=== PATIENT | female | born 1940 | race Caucasian/White ===

== ENCOUNTER → 2016-07-25 | Outpatient (CLI) | payer OTHER, BC ==
[~2016-07-25] MED LIST: AMBIEN 10 MG TA10 MG PO; AMLODIPINE BESYL5 M1 PO; ASPIRIN81 M2 PO; ATORVASTATIN CA40 MG PO; BENADRYL25 MG PO; BIOTIN1 MG PO; CIPROFLOXACIN500 M1 PO; COREG6.25 MG PO; CRESTOR40 MG PO; DYAZIDE 37.5-21 EACH PO; FIBERCON625 M1 PO; FLEXERIL PO; HYDROCODON-ACE1 EAC5 PO; HYDROCODON-ACE1 EAC7 PO; LISINOPRIL10 MG PO; LISINOPRIL20 MG PO; MOBIC7.5 MG PO; MULTI VITAMIN1 EACH PO; NEXIUM 40 MG CA40 M1 PO; NORVASC5 MG PO; PROBIOTIC1 EAC1 PO; TOPROL XL25 MG PO; TRAMADOL 50 MG50 MG PO; TRIAMTERENE/HCT1 CA1 PO; VITAMIN D2000 UNIT PO; WELLBUTRIN SR150 MG PO; XANAX 0.25 MG0.25 MG PO
== END ==
LOC: RAD 02:37
DX: Z12.31 Encounter for screening mammogram for malignant neoplasm of breast (principal)

== ENCOUNTER 2017-09-09 08:01 | Inpatient (IN) | payer OTHER, BC ==
[~2017-09-09] VITALS: Ht 175.3 cm; Wt 69.4 kg
[2017-09-09] VITALS (7 sets, daily range): BP systolic 126–165; BP diastolic 52–76
--- NOTE | ~2017-09-09 | H ---
[facility] [place] [address] HISTORY AND PHYSICAL Name: MAUREEN MANRIQUE Room #: 170-9 ADM IN M.R.#: [id number] Admission: 09/09/17 Attend Phys: Jacob Calderon MD Discharge: Date of : 42 Report #: [id number] THIS REPORT FOR: //name// CC: Julius Calderon DATE OF SERVICE: 09/09/2017 CHIEF COMPLAINT: Shortness of breath. HISTORY OF PRESENT ILLNESS: The patient is a 76-year-old female transferred from [facility] for evaluation of shortness of breath. She underwent a right total knee replacement on 08/28/2017 and then transferred to the intermediate unit for continued rehabilitation several days later. A few days ago, she developed progressive shortness of breath and there was a report of fever up to 101. She has had a dry cough during that time, but symptoms of dyspnea on exertion and hypoxia have worsened over the last couple of days. She has required placement of oxygen up to 3 or 4 liters nasal cannula. She has had low-grade fevers and has been sent to the Emergency Room for evaluation. PAST MEDICAL HISTORY: Hypertension, osteoarthritis. PAST SURGICAL HISTORY: She had colon repair in the FAMILY HISTORY: Noncontributory. SOCIAL HISTORY: No chronic alcohol or tobacco use. ALLERGIES: None. MEDICATIONS: Ambien, aspirin, Lipitor, Maxzide, meloxicam, Coreg, Wellbutrin, Norvasc, probiotic, multivitamin, vitamin D, biotin. REVIEW OF SYSTEMS: She denies headache, chest pain, abdominal pain, nausea, vomiting, diarrhea, constipation, dysuria, syncope or fall. PHYSICAL EXAMINATION: VITAL SIGNS: Temperature 36.8, pulse 80, respirations 15, blood pressure 136/54, room air sat was 88%, 94% on 3 liters nasal cannula. GENERAL: She is awake and alert, in no distress. HEAD AND NECK: Unremarkable. LUNGS: Clear. HEART: Regular. ABDOMEN: Soft, normoactive bowel sounds. EXTREMITIES: No edema. The right knee incision is closed and intact. There is some scant dry crusted material in the superior aspect of the incision with just [facility] [address] [place] [address] HISTORY AND PHYSICAL Name: MAUREEN MANRIQUE Room #: 170-9 ADM IN [facility].#: [id number] Admission: 09/09/17 Attend Phys: Jacob Calderon MD Discharge: Date of : 42 Report #: [id number] some pink areas on the edges. There is no significant drainage. There is no surrounding erythema. There is 1+ right lower leg edema. NEUROLOGIC: Cranial nerves intact. Speech is fluent. Motor strength 5/5 throughout. LABORATORY DATA: White count is 13, hemoglobin 9, mild left shift with segs of 84%. Basic chemistry is unremarkable. Troponin negative. BNP is 3700. Albumin 2.4. Chest x-ray shows bilateral patchy infiltrate, suggests edema versus infiltrate; small left pleural effusion. ASSESSMENT: 1. Healthcare-associated pneumonia. 2. Pulmonary edema. 3. Hypertension. 4. Hypoxia. 5. Acute blood loss anemia, postop. 6. Moderate protein-calorie malnutrition, albumin 2.4. PLAN: She will be treated with empiric antibiotics for healthcare-related pneumonia at this point as she has been hospitalized recently. I have asked for a CTA of the chest to rule out pulmonary embolus given recent knee replacement, although I have been told she had been on Lovenox for DVT prophylaxis. Lasix has been ordered as well in usual home medications. Therapies to continue. I understand that she reported a culture obtained from the right knee incision, I will track that down from the [facility] facility. <ELECTRONICALLY SIGNED> By: Jacob Calderon MD 09/09/17 1245 1030 1053 Jacob Calderon MD /nt
--- NOTE | ~2017-09-09 | HC ---
[facility] [place] [address] CONSULTATION Name: MAUREEN MANRIQUE Room #: 451-P [facility] IN M.R.#: [id number] Admission: 09/09/17 Attend Phys: Jacob Calderon MD Discharge: 09/16/17 Date of : 42 Report #: [id number] THIS REPORT FOR: //name// CC: Julius Calderon MD DATE OF SERVICE: 09/11/2017 REFERRING PROVIDER: Dr. Jacob Calderon. REASON FOR CONSULTATION: Hypoxemia. CHIEF COMPLAINT: Shortness of breath. HISTORY OF PRESENT ILLNESS: Our group was asked to see the patient this morning in consultation while hospitalized at [facility]. The patient is a recent right total knee arthroplasty 2 weeks ago, had been in advanced rehab; however, developed increasing hypoxemia and what appeared to be some mild confusion, was brought to the Emergency Department here 2 days ago where a CT scan of the chest PE protocol was performed to evaluate her hypoxemia. No significant pulmonary emboli were found. Small bilateral pleural effusions were noted. The patient was febrile at that time with a temperature of 101. Diffuse alveolar infiltrates were also noted. She was started on Levaquin and vancomycin. She continues to have significant hypoxemia and desaturation with any activity. Denies any chest pain. Cough is nonproductive and dry. She does complain of some dry throat and difficulty swallowing. No prior pulmonary history. No history of tobacco use. ALLERGIES: None known. PAST MEDICAL HISTORY: Hypertension. OUTPATIENT MEDICATIONS: Include Ambien, aspirin, Lipitor, Maxzide, meloxicam, Coreg, Wellbutrin, Norvasc, probiotics, multivitamin, vitamin D. PAST SURGICAL HISTORY: Includes colon surgery in 1989 as well as bilateral knee arthroplasties, most recently 2 weeks ago. SOCIAL HISTORY: Never smoker, no alcohol consumption. Lives independently with multiple family members in town. FAMILY HISTORY: Negative for any significant pulmonary disease. REVIEW OF SYSTEMS: CONSTITUTIONAL: Fever as noted. No chills or sweats. [facility] [address] [place] [address] CONSULTATION Name: MAUREEN MANRIQUE Room #: 451-[facility] IN [facility].#: [id number] Admission: 09/09/17 Attend Phys: Jacob Calderon MD Discharge: 09/16/17 Date of : 42 Report #: [id number] ENT: Denies any upper respiratory congestion, some mild dysphagia and dry oropharynx. CARDIOVASCULAR: Has seen Dr. Jamie Orellana, Cardiology, but mainly for hypertension. No chest pains or palpitations. No cardiac disease. GASTROINTESTINAL: No nausea, vomiting or abdominal pain. GENITOURINARY: No dysuria, frequency or hematuria. INTEGUMENT: Denies any new rash. MUSCULOSKELETAL: Recent right knee arthroplasty, undergoing rehabilitation. No other acute complaints. PHYSICAL EXAMINATION: VITAL SIGNS: Temperature max 37.9, temperature current 36.7, pulse 70s, respiratory rate 20, blood pressure 106/32, oxygen saturation 93% on 5 liters nasal cannula. GENERAL: This is a well-developed elderly woman, does not appear in any distress. HEENT: Reveals dry oropharynx, Mallampati 1. No thrush. No dental caries noted. NECK: Supple, no lymphadenopathy. LUNGS: Diminished bases with inspiratory crackles, no wheezes. CARDIOVASCULAR: Heart was regular, 2/6 murmur noted. ABDOMEN: Soft, nontender, no masses. EXTREMITIES: 1+ right lower extremity edema, well healing scar over the right knee. LABORATORY DATA: Arterial blood gas done this morning on 3 liters revealed pH 7.41, pCO2 of 44, pO2 of 53, bicarbonate 27. CBC revealed white blood cell count 13,000, hemoglobin 9, hematocrit 26, platelet count . Sodium 129, potassium 3.8, chloride 93, bicarbonate 29, BUN 19, creatinine 0.9. MRSA screen is negative. CT scan as described in HPI. IMPRESSION: 1. Diffuse pulmonary infiltrates, suspicion for healthcare-associated pneumonia. Findings could also be consistent with acute respiratory distress syndrome. The patient does not have significant enough hypoxemia to label that at this time. 2. Pleural effusions with an elevated B-type natriuretic peptide suggestive of pulmonary edema. This may also be contributing to the above findings. 3. Acute hypoxemic respiratory failure. 4. Status post right total knee arthroplasty. SUGGESTIONS: 1. Broaden antimicrobial for coverage of healthcare associated and possibly aspiration organisms. 2. Discontinue vancomycin. His MRSA screen is negative. 3. Continue with bronchodilators. We will add EzPAP. [address] [address] CONSULTATION Name: MAUREEN MANRIQUE Room #: 451-P [facility] IN M.R.#: [id number] Admission: 09/09/17 Attend Phys: Jacob Calderon MD Discharge: 09/16/17 Date of : 42 Report #: [id number] 4. Encourage incentive spirometry. 5. Continuous oximetry monitoring. 6. Diuresis. 7. Check echocardiogram. 8. Follow up electrolytes given diuretics. 9. We will continue to follow. Discussed with nursing and patient at the bedside. <ELECTRONICALLY SIGNED> By: Octaviano Levine MD 09/18/17 1057 1149 1936 Octaviano Levine MD /nt
--- NOTE | ~2017-09-09 | 2DMMODE ---
[facility] [address] [place] [address] 2 D/M-MODE ECHOCARDIOGRAM Name: MAUREEN MANRIQUE Room #: 451-P ADM IN M.R.#: [id number] Admission: 09/09/17 Attend Phys: Dusty Wagner Discharge: Date of : 42 Date of Service: 09/11/17 1148 Report #: [id number] THIS REPORT FOR: //name// APPROVED REPORT Study performed: 09/11/2017 10:48:09 EXAM: Limited 2D, Doppler, and color-flow Echocardiogram Patient Location: Bedside Room #: [facility] Status: routine BSA: 1.84 HR: 70 bpm BP: 119/68 mmHg Other Information Study Quality: Good Technically limited study due to limited to assess PA pressure. Indications SOA, pulmonary edema/effusion 2D Dimensions LVEF(%): 75.61 (>50%) IVSd: 10.95 (7-11mm) LVDd: 36.23 mm PWd: 10.23 (7-11mm) LVDs: 20.46 (25-40mm) IVC: 15.00 mm Ramírez's LVEF: 75.61 % Aortic Valve AI Vmax: 3.97 m/s AI [place]: 2.99 m/s2 AI PHT: 385.05 ms Tricuspid Valve TR Peak Charles.: 3.20 m/s RAP Estimate: 5.00 mmHg TR Peak Gr.: 41.04 mmHg PA Pressure: 46.00 mmHg Left Ventricle The left ventricle is normal size. There is normal left ventricular wall thickness. The left ventricular systolic function is normal. The left ventricular ejection fraction is within the normal range. LVEF [facility] [address] [address] 2 D/M-MODE ECHOCARDIOGRAM Name: MAUREEN MANRIQUE Room #: 451-P ADM IN M.R.#: [id number] Admission: 09/09/17 Attend Phys: Dusty Wagner Discharge: Date of : 42 Date of Service: 09/11/17 1148 Report #: [id number] is 60-65%. Right Ventricle The right ventricle is normal size. Right ventricular systolic function appears grossly normal. Aortic Valve The aortic valve is normal in structure. Moderate aortic regurgitation. Mitral Valve Mild mitral annular calcification. Mild mitral regurgitation. Tricuspid Valve The tricuspid valve is normal in structure. Mild tricuspid regurgitation. PAP is estimated at 46 mmHg. Great Vessels IVC is normal in size and collapses >50% with inspiration. Pericardium Trace pericardial effusion. No echo indications of pericardial tamponade. Small to moderate pleural effusion noted. <Conclusion> The left ventricle is normal size. LVEF is 60-65%. The right ventricle is normal size. The aortic valve is normal in structure. Moderate aortic regurgitation. Mild mitral annular calcification. Mild mitral regurgitation. The tricuspid valve is normal in structure. Mild tricuspid regurgitation. PAP is estimated at 46 mmHg. Trace pericardial effusion. No echo indications of pericardial tamponade. Small to moderate pleural effusion noted. <ELECTRONICALLY SIGNED> By: Hari Erwin MD 09/11/17 1148 1148 1148 Hari Erwin MD /INF
--- NOTE | ~2017-09-09 | EKG ---
[place] [address] [facility] [place] [address] ELECTROCARDIOGRAM REPORT Name: MAUREEN MANRIQUE Room #: 170-9 ADM IN M.R.#: [id number] Admission: 09/09/17 Attend Phys: Jacob Calderon MD Discharge: Date of : 42 Report #: [id number] THIS REPORT FOR: //name// [facility] ED Test Date: 2017-09-09 Test Time: 09:15:50 Pat Name: MAUREEN MANRIQUE Department: Room: Gender: F Tank Officer: richard : 1940 Requested By: Guillermo Peralta Order Number: [id number] MD: Jaydon Whitten Measurements Intervals [place] Rate: 75 P: 38 NE: 190 QRS: 25 QRSD: 85 T: 25 QT: 413 QTc: 462 Interpretive Statements Sinus rhythm Borderline repolarization abnormality Compared to ECG 05/03/2013 07:41:58 ST and T wave abnormality is less pronounced Prolonged QT interval no longer present Electronically Signed On 09-09-2017 15:55:22 CDT by Jaydon Whitten [email or web address] <ELECTRONICALLY SIGNED> By: Jaydon Whitten MD, [facility] 09/09/17 1555 4 4 Jaydon Whitten MD, [facility] /EPI
--- NOTE | ~2017-09-09 | D ---
[facility] [place] [address] DISCHARGE SUMMARY Name: MAUREEN MANRIQUE Room #: 451-P [facility] IN M.R.#: [id number] Admission: 09/09/17 Attend Phys: Jacob Calderon MD Discharge: 09/16/17 Date of : 41 Report #: [id number] THIS REPORT FOR: //name// CC: Julius Calderon FINAL DIAGNOSES: 1. Healthcare-associated pneumonia. 2. Pulmonary edema. 3. Hypertension. 4. History of right total knee replacement. 5. Anemia due to recent acute blood loss. HOSPITAL COURSE: The patient was admitted with hypoxia from the skilled facility. Working diagnosis was healthcare-associated pneumonia. There was some pulmonary edema and she had an elevated BNP, although her ejection fraction was normal. She received IV diuretics and this seemed to help as well. She responded slowly to antibiotics and pulmonary treatments. I had Dr. Levine assess her as well and medicines were continued as had been laid out. She gradually improved over the last 3 or 4 hospital days to oxygen requirement being weaned down to 1-2 liters nasal cannula from as high as 4-5 liters. Chest x-ray was showing improvement in the pulmonary edema and bilateral infiltrates. PHYSICAL EXAMINATION: GENERAL: On the day of discharge, she was awake and alert. VITAL SIGNS: Stable vital signs. Blood pressures were stable off her antihypertensives. LUNGS: Clear. HEART: Regular. ABDOMEN: Soft, normoactive bowel sounds. EXTREMITIES: No edema. The right knee incision was closed and dry with just pink areas along the incision and incision culture was negative. DISPOSITION: She will be transferred to [facility] for continued care home rehabilitation. She will be under the care of Dr. Herman. Regular diet. Activity as tolerated. PT, OT. I signed her transfer medications to include Lovenox for DVT prophylaxis, diuretic for 3 more days, antibiotics for 7 days, and her pain medication. She is to hold antihypertensives for now. Followup lab data has been ordered for 2 days. <ELECTRONICALLY SIGNED> By: Jacob Calderon MD 09/17/17 1219 1000 1154 Jacob Calderon MD /nt
[~2017-09-09 08:01] MED LIST changes: -ATORVASTATIN CA40 MG PO
[2017-09-09 08:31] LABS: ABSOLUTE NEUTROPHILS 11.1 thou/uL (1.4-8.2); BASOPHILS 0.5 % (0.0-2.0); EOSINOPHILS 1.3 % (0.0-3.0); HEMATOCRIT 27.6 % (37.0-47.0); HEMOGLOBIN 9.5 gm/dL (12.0-15.0); LYMPHOCYTES 6.2 % (24.0-44.0); MCH 32.7 pg (26.0-34.0); MCHC 34.4 g/dL (28.0-37.0); MONOCYTES 8.3 % (1.0-8.0); PLATELET COUNT 451 thou/uL (150-400); POLYS 83.7 % (36.0-66.0); RBC 2.91 mil/uL (4.20-5.00); RDW 13.5 % (10.5-14.5); WBC 13.3 thou/uL (4.0-11.0)
[2017-09-09 08:48] LABS: ANION GAP 5 mmol/L (7-16); BUN 9 mg/dL (7-18); CHLORIDE 95 mmol/L (98-107); CO2 30 mmol/L (21-32); CREATININE 0.8 mg/dL (0.6-1.0); GLUCOSE 127 mg/dL (74-106); POTASSIUM 3.5 mmol/L (3.5-5.1); SODIUM 130 mmol/L (136-145)
[2017-09-09 08:52] LABS: ALBUMIN 2.4 g/dL (3.4-5.0); SGOT 27 U/L (15-37); SGPT 19 U/L (30-65); TOTAL BILIRUBIN 0.6 mg/dL (<0.1-1.0); TOTAL PROTEIN 6.2 g/dL (6.4-8.2); TROPONIN-I < 0.04 ng/mL (<0.06)
[2017-09-09] MEDS ORDERED: BYSTOLIC20 MG PO (14:35)
[2017-09-09] MEDS ORDERED: CYMBALTA60 MG PO (14:35)
[2017-09-09] MEDS ORDERED: OMEPRAZOLE 20 M20 M1 PO (14:36)
[2017-09-09] MEDS ORDERED: MOBIC15 MG PO (14:36)
[2017-09-09] MEDS ORDERED: EDARBYCLOR 40-1 EAC1 PO (14:36)
[2017-09-09] MEDS ORDERED: CRESTOR40 MG PO (14:42)
[2017-09-09] MEDS ORDERED: VITAMIN D2000 UNIT PO (14:42)
[2017-09-09] MEDS ORDERED: CYCLOBENZAPRINE5 MG PO (14:43)
[2017-09-09] MEDS ORDERED: TRAZODONE HCL50 MG PO (14:43)
[2017-09-09] MEDS ORDERED: ACIDOPHILUS1 EACH PO (14:44)
[2017-09-09] MEDS ORDERED: ATORVASTATIN CA40 MG PO (15:13)
[2017-09-10 03:58] VITALS: BP 116/52
[2017-09-10 05:18] LABS: HEMATOCRIT 25.8 % (37.0-47.0); HEMOGLOBIN 8.7 gm/dL (12.0-15.0); MCH 32.2 pg (26.0-34.0); MCHC 33.9 g/dL (28.0-37.0); MCV 95.1 fL (80.0-100.0); RBC 2.71 mil/uL (4.20-5.00); RDW 13.5 % (10.5-14.5); WBC 16.1 thou/uL (4.0-11.0)
[2017-09-10 05:33] LABS: CALCIUM 8.6 mg/dL (8.5-10.1); CREATININE 0.9 mg/dL (0.6-1.0); POTASSIUM 3.1 mmol/L (3.5-5.1)
[2017-09-10 07:27] VITALS: BP 106/45
[2017-09-10 16:05] VITALS: BP 105/37
[2017-09-10 19:00] VITALS: BP 129/54
[2017-09-11 04:55] VITALS: BP 106/32
[2017-09-11 05:29] LABS: HEMATOCRIT 25.9 % (37.0-47.0); HEMOGLOBIN 8.8 gm/dL (12.0-15.0); MCH 32.1 pg (26.0-34.0); MCHC 33.9 g/dL (28.0-37.0); MCV 94.7 fL (80.0-100.0); RBC 2.74 mil/uL (4.20-5.00); RDW 13.3 % (10.5-14.5); WBC 12.9 thou/uL (4.0-11.0)
[2017-09-11 05:40] LABS: CALCIUM 8.6 mg/dL (8.5-10.1); CREATININE 0.9 mg/dL (0.6-1.0); POTASSIUM 3.8 mmol/L (3.5-5.1)
[2017-09-11 08:00] VITALS: BP 119/68
[2017-09-11 09:27] LABS: BE(vivo) 2.1 mmol/L (-2 to +3); HCO3 27.2 mmol/L (22.0-26.0); PCO2 44.4 mmHg (35.0-45.0); PO2 52.7 mmHg (80.0-100.0); pH 7.405 (7.360-7.450); sO2 87.3 % (92.0-98.0)
[2017-09-11 15:52] VITALS: BP 90/40
[2017-09-11 18:53] VITALS: BP 109/41
[2017-09-12 03:07] VITALS: BP 109/42
[2017-09-12 05:41] LABS: ALBUMIN 2.4 g/dL (3.4-5.0); CALCIUM 8.6 mg/dL (8.5-10.1); CREATININE 0.9 mg/dL (0.6-1.0); PHOSPHORUS 3.8 mg/dL (2.5-4.9); POTASSIUM 4.1 mmol/L (3.5-5.1)
[2017-09-12 07:25] VITALS: BP 106/50
[2017-09-12 15:45] VITALS: BP 119/42
[2017-09-12 19:13] VITALS: BP 119/47
[2017-09-13 04:16] VITALS: BP 119/45
[2017-09-13 04:42] LABS: HEMATOCRIT 23.2 % (37.0-47.0); HEMOGLOBIN 8.3 gm/dL (12.0-15.0); MCH 33.3 pg (26.0-34.0); MCHC 35.8 g/dL (28.0-37.0); RBC 2.49 mil/uL (4.20-5.00); RDW 13.9 % (10.5-14.5); WBC 9.5 thou/uL (4.0-11.0)
[2017-09-13 04:47] LABS: CALCIUM 8.9 mg/dL (8.5-10.1); POTASSIUM 3.2 mmol/L (3.5-5.1)
[2017-09-13 07:12] VITALS: BP 133/48
[2017-09-13 16:13] VITALS: BP 128/62
[2017-09-13 19:28] VITALS: BP 129/46
[2017-09-14 03:31] VITALS: BP 138/56
[2017-09-14 07:35] VITALS: BP 101/49
[2017-09-14 13:34] LABS: CALCIUM 8.5 mg/dL (8.5-10.1); CREATININE 0.8 mg/dL (0.6-1.0); POTASSIUM 3.5 mmol/L (3.5-5.1)
[2017-09-14 15:15] VITALS: BP 121/47
[2017-09-14 20:00] VITALS: BP 107/52
[2017-09-15 04:30] VITALS: BP 110/60
[2017-09-15 05:42] LABS: CALCIUM 8.7 mg/dL (8.5-10.1); CREATININE 0.7 mg/dL (0.6-1.0); POTASSIUM 3.6 mmol/L (3.5-5.1)
[2017-09-15 08:00] VITALS: BP 144/66
[2017-09-15 15:41] VITALS: BP 110/49
[2017-09-15 20:00] VITALS: BP 121/65
[2017-09-16 01:08] LABS: ADENOVIRUS Negative (Negative); INFLUENZA A Negative (Negative); INFLUENZA B Negative (Negative); METAPNEUMOVIRUS Negative (Negative); PARAINFLUENZA 1 Negative (Negative); PARAINFLUENZA 2 Negative (Negative); PARAINFLUENZA 3 Negative (Negative); RHINOVIRUS Negative (Negative); RSV A Negative (Negative); RSV B Negative (Negative)
[2017-09-16 04:09] VITALS: BP 132/72
[2017-09-16 05:26] LABS: HEMATOCRIT 26.2 % (37.0-47.0); MCH 32.1 pg (26.0-34.0); MCHC 34.4 g/dL (28.0-37.0); MCV 93.2 fL (80.0-100.0); RBC 2.81 mil/uL (4.20-5.00); RDW 13.9 % (10.5-14.5); WBC 9.3 thou/uL (4.0-11.0)
[2017-09-16 05:42] LABS: CALCIUM 8.8 mg/dL (8.5-10.1); CREATININE 0.7 mg/dL (0.6-1.0); POTASSIUM 3.8 mmol/L (3.5-5.1)
[2017-09-16 08:23] VITALS: BP 136/61
[2017-09-16] MEDS ORDERED: ALBUTEROL2.5 MG/0.5 INH (09:32)
[2017-09-16] MEDS ORDERED: AUGMENTIN 875-1 EACH PO (09:32)
[2017-09-16] MEDS ORDERED: ENOXAPARIN40 MG/0.1 SUBQ (09:32)
[2017-09-16] MEDS ORDERED: NORCO 10-325 T1 EACH PO (09:33)
[2017-09-16] MEDS ORDERED: DEMADEX20 MG PO (09:33)
== END 2017-09-16 14:35 | DRG 193 ==
LOC: ER 08:01 → EROBS 09:04 → 4W 09:04
PROVIDERS: Emergency Medicine; Internal Medicine; Internal Medicine Geriatric Medicine; Internal Medicine Pulmonary Disease
DX: J18.9 Pneumonia, unspecified organism (principal); J96.01 Acute respiratory failure with hypoxia; R65.11 Systemic inflammatory response syndrome (SIRS) of non-infectious origin with acute organ dysfunction; D62 Acute posthemorrhagic anemia; E44.0 Moderate protein-calorie malnutrition; I35.1 Nonrheumatic aortic (valve) insufficiency; M19.90 Unspecified osteoarthritis, unspecified site; Y95 Nosocomial condition; Z96.653 Presence of artificial knee joint, bilateral; Z68.22 Body mass index [BMI] 22.0-22.9, adult; Z79.82 Long term (current) use of aspirin; Z79.899 Other long term (current) drug therapy
CPT/HCPCS: 10045

== ENCOUNTER 2018-03-05 14:20 | Emergency (ER) | payer OTHER, BC ==
[~2018-03-05] VITALS: Ht 175.3 cm; Wt 68.0 kg
--- NOTE | ~2018-03-05 | EKG ---
[place] [address] [facility] [place] [address] ELECTROCARDIOGRAM REPORT Name: MAUREEN MANRIQUE Room #: REG [facility]#: [id number] Admission: 03/05/18 Attend Phys: Discharge: Date of : 42 Report #: [id number] THIS REPORT FOR: //name// [facility] ED Test Date: 2018-03-05 Test Time: 14:25:46 Pat Name: MAUREEN MANRIQUE Department: Room: Gender: F Kiln Stacker: as : 1940 Requested By: Iain Gale Order Number: [id number] MD: Remington Spring Measurements Intervals [place] Rate: 68 P: 35 [place]: 195 QRS: 0 QRSD: 90 T: 1 QT: 412 QTc: 439 Interpretive Statements Sinus rhythm Probable left atrial enlargement Borderline T abnormalities, anterior leads Compared to ECG 10/06/2017 10:49:34 T-wave abnormality now present Myocardial infarct finding no longer present Electronically Signed On 03-05-2018 14:56:04 SOCIAL WORK THERAPIST by Remington Spring [email or web address] <ELECTRONICALLY SIGNED> By: Remington Spring MD 03/05/18 1456 1425 1425 Remington Spring MD /JOE
[~2018-03-05 14:20] MED LIST changes: +ACIDOPHILUS1 EACH PO; +ALBUTEROL2.5 MG/0.5 INH; +ATORVASTATIN CA40 MG PO; +AUGMENTIN 875-1 EACH PO; +BYSTOLIC20 MG PO; +CYCLOBENZAPRINE5 MG PO; +CYMBALTA60 MG PO; +DEMADEX20 MG PO; +EDARBYCLOR 40-1 EAC1 PO; +ENOXAPARIN40 MG/0.1 SUBQ; +MOBIC15 MG PO; +NORCO 10-325 T1 EACH PO; +OMEPRAZOLE 20 M20 M1 PO; +TRAZODONE HCL50 MG PO
[2018-03-05 14:57] LABS: ABSOLUTE NEUTROPHILS 3.3 thou/uL (1.4-8.2); BASOPHILS 0.9 % (0.0-2.0); EOSINOPHILS 3.2 % (0.0-3.0); HEMATOCRIT 34.5 % (37.0-47.0); HEMOGLOBIN 11.5 gm/dL (12.0-15.0); MCH 28.2 pg (26.0-34.0); MCHC 33.3 g/dL (28.0-37.0); MCV 84.7 fL (80.0-100.0); MONOCYTES 10.2 % (1.0-8.0); PLATELET COUNT 286 thou/uL (150-400); POLYS 60.7 % (36.0-66.0); RBC 4.08 mil/uL (4.20-5.00); RDW 17.6 % (10.5-14.5); WBC 5.5 thou/uL (4.0-11.0)
[2018-03-05 15:01] LABS: ANION GAP 7 mmol/L (7-16); BUN 28 mg/dL (7-18); CALCIUM 9.3 mg/dL (8.5-10.1); CHLORIDE 100 mmol/L (98-107); CO2 27 mmol/L (21-32); CREATININE 1.1 mg/dL (0.6-1.0); GLUCOSE 97 mg/dL (74-106); POTASSIUM 4.5 mmol/L (3.5-5.1); SODIUM 134 mmol/L (136-145)
[2018-03-05 15:09] LABS: TROPONIN-I <0.06 ng/mL (<0.06)
[2018-03-05 16:13] VITALS: BP 148/67
== END 2018-03-05 16:33 | disposition home or self-care (01) ==
LOC: ER 14:20
PROVIDERS: Emergency Medicine
DX: S00.03XA Contusion of scalp, initial encounter (principal); E78.5 Hyperlipidemia, unspecified; I10 Essential (primary) hypertension; M19.90 Unspecified osteoarthritis, unspecified site; M48.00 Spinal stenosis, site unspecified; Z96.653 Presence of artificial knee joint, bilateral; W01.198A Fall on same level from slipping, tripping and stumbling with subsequent striking against other object, initial encounter; Y92.89 Other specified places as the place of occurrence of the external cause; Y93.89 Activity, other specified; Y99.8 Other external cause status

== ENCOUNTER → 2019-07-05 | Outpatient (CLI) | payer OTHER | LOC: SJCVC 13:21 | DX: R94.31 Abnormal electrocardiogram [ECG] [EKG] (principal); I25.10 Atherosclerotic heart disease of native coronary artery without angina pectoris; I42.9 Cardiomyopathy, unspecified; E78.00 Pure hypercholesterolemia, unspecified; I10 Essential (primary) hypertension; I71.4 Abdominal aortic aneurysm, without rupture; I35.1 Nonrheumatic aortic (valve) insufficiency; M19.90 Unspecified osteoarthritis, unspecified site; Z82.49 Family history of ischemic heart disease and other diseases of the circulatory system; Z79.899 Other long term (current) drug therapy ==

== ENCOUNTER → 2019-08-17 | Outpatient (CLI) | payer OTHER | LOC: SJCVCIMAG 08:10 | DX: I71.4 Abdominal aortic aneurysm, without rupture (principal); I08.3 Combined rheumatic disorders of mitral, aortic and tricuspid valves; I25.10 Atherosclerotic heart disease of native coronary artery without angina pectoris; I42.9 Cardiomyopathy, unspecified; E78.5 Hyperlipidemia, unspecified; I10 Essential (primary) hypertension; I73.9 Peripheral vascular disease, unspecified; Z79.899 Other long term (current) drug therapy; Z88.1 Allergy status to other antibiotic agents ==

== ENCOUNTER 2019-11-30 16:09 | Emergency (ER) | payer OTHER ==
[~2019-11-30] VITALS: Ht 175.3 cm; Wt 68.0 kg
[2019-11-30] MEDS ORDERED: NORCO 10-325 T1 EACH PO (19:28)
[2019-11-30] MEDS ORDERED: PREDNISONE 10 M10 MG PO (19:28)
[2019-11-30 19:43] VITALS: BP 133/68
== END 2019-11-30 19:43 | disposition home or self-care (01) ==
LOC: ER 16:09
DX: M54.42 Lumbago with sciatica, left side (principal); M19.90 Unspecified osteoarthritis, unspecified site; I10 Essential (primary) hypertension; E78.5 Hyperlipidemia, unspecified; I25.2 Old myocardial infarction; Z96.652 Presence of left artificial knee joint; Z79.82 Long term (current) use of aspirin; Z79.899 Other long term (current) drug therapy

== ENCOUNTER 2019-12-23 04:46 | Emergency (ER) | payer OTHER ==
[~2019-12-23] VITALS: Ht 175.3 cm; Wt 69.0 kg
--- NOTE | ~2019-12-23 | EMS ---
[facility] [address] [place] [address] EMS Patient Care Report Name: MAUREEN MANRIQUE Room #: REG [facility]#: [id number] Admission: 12/23/19 Attend Phys: Discharge: Date of : 42 Report #: [id number] THIS REPORT FOR: //name// Report Transmitted: 12/23/2019 05:21 EMS Care Summary [facility] MED-ACT Incident [id number] @ 12/23/2019 04:11 Incident Location [address] [place] [address] [place] [address] Patient MAUREEN MANRIQUE Female, 79 Years 1940 Patient Address [address] [place] [address] [place] [address] Patient History Hypertension (HTN),Hyperlipidemia, Patient Allergies No known allergies, Patient Medications Lisinopril, Spironolactone, Atorvastatin, Amlodipine, Chief Complaint my right flank hurts shoots in groin Disposition Transported No Lights/[place] Dispatch Reason Sick Person Transported To [facility] Narrative M1141 dispatched non emergent to C3 sick ill subject. Upon arrival pt ambulatory of scene in no obvious distress. Pt states starting Friday she has [facility] [address] [place] [address] EMS Patient Care Report Name: MAUREEN MANRIQUE [id number] Admission: 12/23/19 Attend Phys: Discharge: Date of : 42 Report #: [id number] been having right sided flank pain that is constantly dull and has sharp pain with movement that changes with movement. Pt denied any trauma to cause the right sided pain. Pt denies history of kidney stones. Pt denies pain with urination. Pt denies blood in urine. Pt assessment performed. Vital assessed. Pt assisted to cot. Pt moved to ambulance. Biocom to [place] performed. Pt report given to RN. Pt care transferred to [place] Without incident. M1141 cleared call. Initial Vitals @04:34P: 67,BP: 131/60,SpO2: 93, @04:24P: 71,R: 16,BP: 168/73,Pain: 2/10,GCS: 15,SpO2: 96,Revised Trauma: 12, Assessments @04:34MENTAL:Person Oriented,Time Oriented,Place Oriented,Event Oriented,SKIN:HEENT:Eyes: Left Pupil: 4-mm,Eyes: Right Pupil: 4-mm,LUNG SOUNDS:General: No Abnormalities,ABDOMEN:General: No Abnormalities,PELVIS//GI:EXTREMITIES:Left Arm: No Abnormalities,Right Arm: No Abnormalities,Left Leg: No Abnormalities,Right Leg: No Abnormalities,PULSE:Radial: 2+ Normal,NEURO:No Abnormalities, Impression Back Pain Timeline 04:08,Call Received 04:08,Psap Call 04:11,Dispatched 04:12,En Route 04:16,On Scene 04:19,At Patient 04:24,BP: 168/73 M,PULSE: 71,RR: 16 R,SPO2: 96 Ox,ETCO2: ,BG: ,PAIN: 2,GCS: 15, 04:28,Depart Scene 04:34,BP: 131/60 M,PULSE: 67,RR: R,SPO2: 93 Ox,ETCO2: ,BG: ,PAIN: ,GCS: , 04:43,At Destination 04:52,Call Closed Disclaimer v1.1 Copyright 2020 [employer] This EMS Care Summary contains data elements from the applicable legal record (which may be displayed differently). It is designed to provide pertinent information for the following purposes: continuity of care, clinical quality, and state data reporting. The complete legal record is available to ED staff and administrators of the receiving hospital in [employer] Patient Tracker. All data is provided "as is."
--- NOTE | ~2019-12-23 | EMS ---
[facility] [address] [place] [address] EMS Patient Care Report Name: MAUREEN MANRIQUE Room #: DEP [facility]#: [id number] Admission: 12/23/19 Attend Phys: Discharge: 12/23/19 Date of : 42 Report #: [id number] THIS REPORT FOR: //name// Report Transmitted: 12/23/2019 06:04 EMS Care Summary [facility] MED-ACT Incident [id number] @ 12/23/2019 04:11 Incident Location [address] [place] [address] [place] [address] Patient MAUREEN MANRIQUE Female, 79 Years 1940 Patient Address [address] [place] [address] [place] [address] Patient History Hypertension (HTN),Hyperlipidemia, Patient Allergies No known allergies, Patient Medications Lisinopril, Spironolactone, Atorvastatin, Amlodipine, Chief Complaint my right flank hurts shoots in groin Disposition Transported No Lights/[place] Dispatch Reason Sick Person Transported To [facility] Narrative M1141 dispatched non emergent to C3 sick ill subject. Upon arrival pt ambulatory of scene in no obvious distress. Pt states starting Friday she has [facility] [address] [place] [address] EMS Patient Care Report Name: MAUREEN MANRIQUE Room #: DEP [facility].#: [id number] Admission: 12/23/19 Attend Phys: Discharge: 12/23/19 Date of : 42 Report #: [id number] been having right sided flank pain that is constantly dull and has sharp pain with movement that changes with movement. Pt denied any trauma to cause the right sided pain. Pt denies history of kidney stones. Pt denies pain with urination. Pt denies blood in urine. Pt assessment performed. Vital assessed. Pt assisted to cot. Pt moved to ambulance. Biocom to [place] performed. Pt report given to RN. Pt care transferred to [place] Without incident. M1141 cleared call. Initial Vitals @04:34P: 67,BP: 131/60,SpO2: 93, @04:24P: 71,R: 16,BP: 168/73,Pain: 2/10,GCS: 15,SpO2: 96,Revised Trauma: 12, Assessments @04:34MENTAL:Person Oriented,Time Oriented,Place Oriented,Event Oriented,SKIN:HEENT:Eyes: Left Pupil: 4-mm,Eyes: Right Pupil: 4-mm,LUNG SOUNDS:General: No Abnormalities,ABDOMEN:General: No Abnormalities,PELVIS//GI:EXTREMITIES:Left Arm: No Abnormalities,Right Arm: No Abnormalities,Left Leg: No Abnormalities,Right Leg: No Abnormalities,PULSE:Radial: 2+ Normal,NEURO:No Abnormalities, Impression Back Pain Timeline 04:08,Call Received 04:08,Psap Call 04:11,Dispatched 04:12,En Route 04:16,On Scene 04:19,At Patient 04:24,BP: 168/73 M,PULSE: 71,RR: 16 R,SPO2: 96 Ox,ETCO2: ,BG: ,PAIN: 2,GCS: 15, 04:28,Depart Scene 04:34,BP: 131/60 M,PULSE: 67,RR: R,SPO2: 93 Ox,ETCO2: ,BG: ,PAIN: ,GCS: , 04:43,At Destination 04:52,Call Closed Disclaimer v1.1 Copyright 2020 [employer] This EMS Care Summary contains data elements from the applicable legal record (which may be displayed differently). It is designed to provide pertinent information for the following purposes: continuity of care, clinical quality, and state data reporting. The complete legal record is available to ED staff and administrators of the receiving hospital in [email or web address] Patient Tracker. All data is provided "as is."
[~2019-12-23 04:46] MED LIST changes: +PREDNISONE 10 M10 MG PO
[2019-12-23] MEDS ORDERED: NORCO 5-325 TA1 EAC2 PO (06:18)
[2019-12-23 06:29] VITALS: BP 122/48
== END 2019-12-23 06:31 | disposition home or self-care (01) ==
LOC: ER 04:46
DX: G89.29 Other chronic pain (principal); M54.5 Low back pain; M47.9 Spondylosis, unspecified; M41.9 Scoliosis, unspecified; J02.9 Acute pharyngitis, unspecified; I10 Essential (primary) hypertension; E78.5 Hyperlipidemia, unspecified; I25.2 Old myocardial infarction; Z79.82 Long term (current) use of aspirin; Z79.899 Other long term (current) drug therapy

== ENCOUNTER 2019-12-27 14:11 | Emergency (ER) | payer OTHER ==
[~2019-12-27] VITALS: Ht 175.3 cm; Wt 68.0 kg
[~2019-12-27 14:11] MED LIST changes: +NORCO 5-325 TA1 EAC2 PO
[2019-12-27 16:34] VITALS: BP 140/74
== END 2019-12-27 16:34 | disposition home or self-care (01) ==
LOC: ER 14:11
DX: M54.41 Lumbago with sciatica, right side (principal); I10 Essential (primary) hypertension; E78.5 Hyperlipidemia, unspecified; M19.90 Unspecified osteoarthritis, unspecified site; I25.2 Old myocardial infarction; Z96.653 Presence of artificial knee joint, bilateral; Z79.899 Other long term (current) drug therapy; Z79.82 Long term (current) use of aspirin

== ENCOUNTER → 2020-02-10 | Outpatient (CLI) | payer OTHER | LOC: SJCVC 13:54 | PROVIDERS: ATTEND Internal Medicine Cardiovascular Disease | DX: R94.31 Abnormal electrocardiogram [ECG] [EKG] (principal); I25.10 Atherosclerotic heart disease of native coronary artery without angina pectoris; I10 Essential (primary) hypertension; E78.00 Pure hypercholesterolemia, unspecified; I42.9 Cardiomyopathy, unspecified; I35.1 Nonrheumatic aortic (valve) insufficiency; I35.8 Other nonrheumatic aortic valve disorders; I71.4 Abdominal aortic aneurysm, without rupture; R09.89 Other specified symptoms and signs involving the circulatory and respiratory systems ==

== ENCOUNTER → 2020-03-27 | Outpatient (CLI) | payer OTHER | LOC: LAB 15:11 | PROVIDERS: ATTEND Family Medicine | DX: Z20.828 Contact with and (suspected) exposure to other viral communicable diseases (principal) ==

== ENCOUNTER → 2020-07-14 | Outpatient (CLI) | payer OTHER | LOC: SJCVCIMAG 08:44 | PROVIDERS: ATTEND Internal Medicine Cardiovascular Disease | DX: I73.9 Peripheral vascular disease, unspecified (principal); M79.604 Pain in right leg; M79.605 Pain in left leg; Z79.899 Other long term (current) drug therapy ==

== ENCOUNTER → 2021-01-01 | Outpatient (CLI) | payer OTHER | LOC: SJCVCIMAG 11:13 | PROVIDERS: ATTEND Internal Medicine Cardiovascular Disease | DX: I65.23 Occlusion and stenosis of bilateral carotid arteries (principal); R42 Dizziness and giddiness ==

== ENCOUNTER → 2021-02-05 | Outpatient (CLI) | payer OTHER | LOC: SJCVCIMAG 13:59 → SJCVC 13:59 | PROVIDERS: ATTEND Internal Medicine Cardiovascular Disease | DX: I77.811 Abdominal aortic ectasia (principal) ==